=== PATIENT | female | born 1965 | race Caucasian/White ===

== ENCOUNTER 2022-10-12 16:21 | Emergency (ER) | payer OTHER ==
[2022-10-12] VITALS (8 sets, daily range): BP systolic 94–119; BP diastolic 57–81
[~2022-10-12] VITALS: Ht 160 cm; Wt 77.3 kg
[2022-10-12] MEDS ORDERED: SYNTHROID25 MCG PO (16:33)
[2022-10-12] MEDS ORDERED: DRIZALMA SPRINK60 MG PO (16:33)
[2022-10-12 17:08] LABS: BASO% 0.4 % (0-3); EOS% 2.3 % (0-8); HEMATOCRIT 38.8 % (37.0-47.0); HEMOGLOBIN 12.1 g/dl (12.0-16.0); IMMATURE GRANULOCYTES 0.6 % (0.0-5.0); LYMPH% 26.4 % (15-41); MEAN CORPUSCULAR HGB CONC 31.2 g/dL CAL (32.0-36.0); MONO% 7.4 % (2-13); NEUT# 4.56 thou/uL (2.00-7.15); NEUT% 62.9 % (42-76); RED BLOOD COUNT 4.17 mill/uL (4.20-5.60)
[2022-10-12 17:27] LABS: ALBUMIN 4.3 g/dL (3.2-5.0); ALKALINE PHOSPHATASE 63 u/l (38-126); ANION GAP 9 (6-22 (CALC)); BUN 9 mg/dL (7-17); BUN/CREATININE RATIO 12 (12-20 (CALC)); CARBON DIOXIDE 28 mmol/l (22-30); CHLORIDE 108 mmol/l (95-108); CREATININE 0.7 mg/dL (0.5-1.0); GFR FOR AFR.AMER. > 60 ML/MIN (>=60 (CALC)); GFR OTHER RACES > 60 ML/MIN (>=60 (CALC)); SGOT/AST 30 u/l (14-36); SODIUM 141 mmol/l (137-146); TOTAL PROTEIN 7.6 g/dL (6.3-8.2)
[2022-10-12] MEDS ORDERED: EPIPEN 2-P0.3 MG/0.3 IM (17:58)
[2022-10-12] MEDS ORDERED: ZPAK PO (17:58)
== END 2022-10-12 18:30 | disposition home or self-care (01) | DRG 153 ==
LOC: ED 16:21
PROVIDERS: Family Medicine
DX: J02.9 Acute pharyngitis, unspecified (principal); J45.909 Unspecified asthma, uncomplicated; Z20.822 Contact with and (suspected) exposure to COVID-19